=== PATIENT | female | born 1950 | race African-American/Black ===

== ENCOUNTER 2022-03-07 08:29 | Inpatient (IN) ==
[2022-03-07 09:26] LABS: Basophils # 0.1 10*3/uL (0.0-0.2); Basophils % 0.5 % (0.0-0.8); Eosinophils # 0.3 10*3/uL (0.0-0.87); Eosinophils % 3.2 % (0.00-10.9); Hemoglobin 13.4 GM/DL (12.0-16.0); Immature Granulocytes % 0.3 %; Immature Granulocytes Absolute 0.03 #; Lymphocytes # 1.2 10*3/uL (1.4-4.0); Lymphocytes % 11.9 % (21.3-54.2); Mean Corpuscular HGB Conc 31.9 GM/DL (32-36); Mean Corpuscular Volume 88.8 FL (87-102); Mean Platelet Volume 11.7 FL (9.6-12.0); Monocytes % 9.9 % (1.7-12.7); Neutrophils % 74.2 % (38.7-73.9); Platelet Count 254 T/CUMM (130-400); Red Blood Count 4.73 MC/CUMM (3.8-5.5); Red Cell Distribution Width 13.2 % (9.3-17.3); White Blood Count 9.9 T/CUMM (4-12)
[2022-03-07 09:36] LABS: Albumin 3.2 G/DL (3.4-5.0); Bilirubin,Total 0.6 MG/DL (0.20-1.00); Calcium 9.4 MG/DL (8.5-10.1); Potassium 4.3 MMOL/L (3.5-5.1); Total Protein 7.6 G/DL (6.4-8.2)
[2022-03-07] MEDS ORDERED: LEVOFLOXACIN INJ 750 MG in PREMIX 1 EACH IV STA (11:40)
[2022-03-07] MEDS ORDERED: ONDANSETRON 4 MG/2 ML VIAL IV PRN (11:41)
[2022-03-07] MEDS ORDERED: ACETAMINOPHEN 325 MG TABLET PO PRN (11:41)
[2022-03-07] MEDS ORDERED: methylPREDNISolone SOD SUC 125 MG/2 ML VIAL IV STA (11:41)
[2022-03-07] MEDS: SODIUM CHLORIDE 0.9% 1,000 ML IV SCH ×2 (12:01→22:00)
[2022-03-07] MEDS ORDERED: MORPHINE 2 MG/1 ML SYRINGE IV PRN (14:10)
[2022-03-07] MEDS ORDERED: KETOROLAC 15 MG/1 ML VIAL IV ONE (14:10)
[2022-03-07] MEDS: ALBUTEROL/IPRATROPIUM 3 ML NEB RESP TX SCH (19:10)
[2022-03-07] MEDS ORDERED: GLUCAGON 1 MG VIAL IM PRN (22:10)
[2022-03-07] MEDS ORDERED: BUTALBITAL ACETAMINOPHEN PO PRN (22:12)
[2022-03-07] MEDS ORDERED: [UNRECOGNIZED DRUG - OTHER] OPHTHALMIC (EYE) SCH (22:15)
[2022-03-07] MEDS ORDERED: DEXTROSE 10% 250 ML BAG IV PRN (22:15)
[2022-03-07] MEDS: DOCUSATE SODIUM 100 MG CAPSULE PO SCH (22:31)
[2022-03-08 05:13] LABS: Basophils % 0.1 % (0.0-0.8); Hematocrit 39.2 VOL% (35.7-47.0); Hemoglobin 12.5 GM/DL (12.0-16.0); Immature Granulocytes % 0.4 %; Immature Granulocytes Absolute 0.04 #; Lymphocytes # 0.4 10*3/uL (1.4-4.0); Mean Corpuscular HGB Conc 31.9 GM/DL (32-36); Mean Corpuscular Volume 89.1 FL (87-102); Mean Platelet Volume 12.1 FL (9.6-12.0); Monocytes # 0.5 10*3/uL (0.11-0.8); Monocytes % 4.7 % (1.7-12.7); Neutrophils % 90.8 % (38.7-73.9); Platelet Count 264 T/CUMM (130-400); Red Cell Distribution Width 12.9 % (9.3-17.3); White Blood Count 10.1 T/CUMM (4-12)
[2022-03-08 05:31] LABS: Alanine Aminotransferase 26 U/L (13-56); Albumin 2.8 G/DL (3.4-5.0); Alkaline Phosphatase 93 U/L (45-117); Aspartate Amino Transferase 14 U/L (0-37); Bilirubin,Total < 0.39 MG/DL (0.20-1.00); Blood Urea Nitrogen 24 MG/DL (7-18); Calcium 9.1 MG/DL (8.5-10.1); Carbon Dioxide 19 MMOL/L (21-32); Chloride 110 MMOL/L (98-107); Estimated Glom Filtration Rate 58 ML/MIN; Glucose 263 MG/DL (74-106); Osmolality,Calculated 289.5 MOS/KG (273-304); Sodium 139 MMOL/L (136-145); Total Protein 7.1 G/DL (6.4-8.2)
[2022-03-08 05:35] LABS: Band Neutrophils 1 % (0-10); Lymphocytes 2 % (20-55); Total Cells Counted 100
[2022-03-08 05:36] LABS: Microcytosis Slight; Polychromasia Slight
[2022-03-08 05:37] LABS: Platelet Estimate Normal
[2022-03-08] MEDS: SODIUM CHLORIDE 0.9% 1,000 ML IV SCH ×2 (06:00→17:37)
[2022-03-08] MEDS: ALBUTEROL/IPRATROPIUM 3 ML NEB RESP TX SCH ×4 (07:20→19:00)
[2022-03-08] MEDS ORDERED: LORATADINE 10 MG TABLET PO SCH (09:00)
[2022-03-08] MEDS ORDERED: METHOCARBAMOL 500 MG TABLET PO SCH (09:00)
[2022-03-08] MEDS ORDERED: OXYMETAZOLINE 0.05% NASAL SPRAY 15 ML BOTTLE BOTH NARES SCH (09:00)
[2022-03-08] MEDS ORDERED: DOXAZOSIN 1 MG TABLET PO SCH (09:00)
[2022-03-08] MEDS ORDERED: FEXOFENADINE 180 MG TABLET PO SCH (09:00)
[2022-03-08] MEDS: PANTOPRAZOLE 40 MG TABLET PO SCH (09:12)
[2022-03-08] MEDS: methylPREDNISolone SOD SUC 40 MG/1 ML VIAL IV SCH ×3 (09:12→23:40)
[2022-03-08] MEDS: GLIMEPIRIDE 4 MG TABLET PO SCH ×2 (09:13→17:28)
[2022-03-08] MEDS: MAGNESIUM OXIDE 400 MG TABLET PO SCH ×2 (09:14→20:10)
[2022-03-08] MEDS: cefTRIAXone 1,000 MG in SODIUM CHLORIDE 0.9% 100 ML IV SCH (09:18)
[2022-03-08] MEDS: DOCUSATE SODIUM 100 MG CAPSULE PO SCH ×2 (09:20→20:10)
[2022-03-08] MEDS: INSULIN REGULAR 100 UNIT/ML SUBCUT SCH ×4 (10:32→21:30)
[2022-03-08] MEDS: ASPIRIN EC 81 MG TABLET PO SCH (10:33)
[2022-03-08] MEDS: AZITHROMYCIN INJ 500 MG in SODIUM CHLORIDE 0.9% 250 ML IV SCH (10:56)
[2022-03-08] MEDS ORDERED: INSULIN GLARGINE 100 UNIT/ML SUBCUT SCH (16:56)
[2022-03-08] MEDS: DOXAZOSIN 1 MG TABLET PO SCH (17:28)
[2022-03-08] MEDS: FEXOFENADINE 180 MG TABLET PO SCH (20:10)
[2022-03-09] MEDS: ALBUTEROL/IPRATROPIUM 3 ML NEB RESP TX SCH ×3 (00:53→19:05)
[2022-03-09] MEDS: SODIUM CHLORIDE 0.9% 1,000 ML IV SCH ×3 (02:15→20:05)
[2022-03-09] MEDS ORDERED: GLUCAGON 1 MG VIAL IM PRN (07:02)
[2022-03-09] MEDS ORDERED: DEXTROSE 10% 25 GM/250 ML BAG IV PRN (07:02)
[2022-03-09 08:58] LABS: Calcium 8.9 MG/DL (8.5-10.1); Osmolality,Calculated 288.1 MOS/KG (273-304); Potassium 4.1 MMOL/L (3.5-5.1)
[2022-03-09] MEDS: PANTOPRAZOLE 40 MG TABLET PO SCH (09:40)
[2022-03-09] MEDS: GLIMEPIRIDE 4 MG TABLET PO SCH ×2 (09:40→16:35)
[2022-03-09] MEDS: ASPIRIN EC 81 MG TABLET PO SCH (09:40)
[2022-03-09] MEDS: INSULIN REGULAR 100 UNIT/ML SUBCUT SCH ×4 (09:40→20:05)
[2022-03-09] MEDS: MAGNESIUM OXIDE 400 MG TABLET PO SCH ×2 (09:41→20:05)
[2022-03-09] MEDS: DOCUSATE SODIUM 100 MG CAPSULE PO SCH ×2 (09:42→20:05)
[2022-03-09] MEDS: methylPREDNISolone SOD SUC 40 MG/1 ML VIAL IV SCH ×2 (09:44→15:23)
[2022-03-09] MEDS: cefTRIAXone 1,000 MG in SODIUM CHLORIDE 0.9% 100 ML IV SCH (09:54)
[2022-03-09] MEDS: INSULIN GLARGINE 100 UNIT/ML SUBCUT SCH (11:29)
[2022-03-09] MEDS: AZITHROMYCIN INJ 500 MG in SODIUM CHLORIDE 0.9% 250 ML IV SCH (11:29)
[2022-03-09] MEDS: DOXAZOSIN 1 MG TABLET PO SCH (16:35)
[2022-03-09] MEDS: FEXOFENADINE 180 MG TABLET PO SCH (20:05)
[2022-03-10] MEDS: methylPREDNISolone SOD SUC 40 MG/1 ML VIAL IV SCH ×4 (00:30→23:45)
[2022-03-10] MEDS: ALBUTEROL/IPRATROPIUM 3 ML NEB RESP TX SCH ×5 (00:44→19:08)
[2022-03-10] MEDS: SODIUM CHLORIDE 0.9% 1,000 ML IV SCH ×3 (03:55→23:45)
[2022-03-10 05:34] LABS: Calcium 8.6 MG/DL (8.5-10.1); Osmolality,Calculated 285.3 MOS/KG (273-304); Potassium 4.4 MMOL/L (3.5-5.1)
[2022-03-10] MEDS: GLIMEPIRIDE 4 MG TABLET PO SCH ×2 (08:45→17:37)
[2022-03-10] MEDS: PANTOPRAZOLE 40 MG TABLET PO SCH (08:46)
[2022-03-10] MEDS: MAGNESIUM OXIDE 400 MG TABLET PO SCH ×2 (08:46→20:15)
[2022-03-10] MEDS: DOCUSATE SODIUM 100 MG CAPSULE PO SCH ×2 (08:46→20:15)
[2022-03-10] MEDS: cefTRIAXone 1,000 MG in SODIUM CHLORIDE 0.9% 100 ML IV SCH (08:50)
[2022-03-10] MEDS: INSULIN REGULAR 100 UNIT/ML SUBCUT SCH ×4 (08:52→20:15)
[2022-03-10] MEDS: ASPIRIN EC 81 MG TABLET PO SCH (08:52)
[2022-03-10] MEDS: INSULIN GLARGINE 100 UNIT/ML SUBCUT SCH (08:53)
[2022-03-10] MEDS: AZITHROMYCIN INJ 500 MG in SODIUM CHLORIDE 0.9% 250 ML IV SCH (10:19)
[2022-03-10] MEDS: DOXAZOSIN 1 MG TABLET PO SCH (17:37)
[2022-03-10] MEDS: FEXOFENADINE 180 MG TABLET PO SCH (20:15)
[2022-03-11] MEDS: ALBUTEROL/IPRATROPIUM 3 ML NEB RESP TX SCH ×4 (00:44→19:15)
[2022-03-11 06:17] LABS: Basophils % 0.1 % (0.0-0.8); Hematocrit 38.5 VOL% (35.7-47.0); Hemoglobin 12.2 GM/DL (12.0-16.0); Immature Granulocytes Absolute 0.09 #; Lymphocytes # 1.1 10*3/uL (1.4-4.0); Lymphocytes % 11.7 % (21.3-54.2); Mean Corpuscular HGB Conc 31.7 GM/DL (32-36); Mean Corpuscular Volume 88.9 FL (87-102); Mean Platelet Volume 11.4 FL (9.6-12.0); Monocytes # 0.6 10*3/uL (0.11-0.8); Monocytes % 6.9 % (1.7-12.7); Neutrophils % 80.3 % (38.7-73.9); Platelet Count 322 T/CUMM (130-400); Red Blood Count 4.33 MC/CUMM (3.8-5.5); Red Cell Distribution Width 13.3 % (9.3-17.3)
[2022-03-11 06:37] LABS: Calcium 8.9 MG/DL (8.5-10.1); Osmolality,Calculated 285.1 MOS/KG (273-304); Potassium 4.3 MMOL/L (3.5-5.1)
[2022-03-11] MEDS ORDERED: MEPERIDINE 50 MG/1 ML VIAL IM ONE (07:30)
[2022-03-11] MEDS ORDERED: PROMETHAZINE 25 MG/1 ML VIAL IM ONE (07:30)
[2022-03-11] MEDS ORDERED: LIDOCAINE 2% 20 ML VIAL RESP TX ONE (08:00)
[2022-03-11] MEDS ORDERED: MIDAZOLAM 2 MG/2 ML VIAL IV ONE (08:00)
[2022-03-11] MEDS ORDERED: LIDOCAINE 2% VISCOUS 100 ML BOTTLE SWISH/SPIT ONE (08:00)
[2022-03-11] MEDS ORDERED: LIDOCAINE 1% 20 ML VIAL MISC INJ ONE (08:00)
[2022-03-11] MEDS: INSULIN REGULAR 100 UNIT/ML SUBCUT SCH ×4 (08:23→20:35)
[2022-03-11] MEDS: GLIMEPIRIDE 4 MG TABLET PO SCH ×2 (08:23→17:27)
[2022-03-11] MEDS: methylPREDNISolone SOD SUC 40 MG/1 ML VIAL IV SCH ×2 (09:13→16:03)
[2022-03-11] MEDS: INSULIN GLARGINE 100 UNIT/ML SUBCUT SCH (10:09)
[2022-03-11] MEDS: AZITHROMYCIN INJ 500 MG in SODIUM CHLORIDE 0.9% 250 ML IV SCH (10:18)
[2022-03-11] MEDS: cefTRIAXone 1,000 MG in SODIUM CHLORIDE 0.9% 100 ML IV SCH (11:25)
[2022-03-11] MEDS: DOCUSATE SODIUM 100 MG CAPSULE PO SCH ×2 (11:25→20:35)
[2022-03-11] MEDS: PANTOPRAZOLE 40 MG TABLET PO SCH (11:25)
[2022-03-11] MEDS: ASPIRIN EC 81 MG TABLET PO SCH (11:55)
[2022-03-11] MEDS: MAGNESIUM OXIDE 400 MG TABLET PO SCH ×2 (11:56→20:35)
[2022-03-11] MEDS: SODIUM CHLORIDE 0.9% 1,000 ML IV SCH ×2 (14:01→19:29)
[2022-03-11] MEDS: DOXAZOSIN 1 MG TABLET PO SCH (16:04)
[2022-03-11] MEDS: FEXOFENADINE 180 MG TABLET PO SCH (20:35)
[2022-03-12] MEDS: ALBUTEROL/IPRATROPIUM 3 ML NEB RESP TX SCH ×3 (00:15→13:25)
[2022-03-12] MEDS: methylPREDNISolone SOD SUC 40 MG/1 ML VIAL IV SCH ×2 (00:28→09:04)
[2022-03-12] MEDS: INSULIN REGULAR 100 UNIT/ML SUBCUT SCH ×3 (07:37→18:12)
[2022-03-12] MEDS ORDERED: GLIMEPIRIDE 4 MG TABLET PO SCH (08:00)
[2022-03-12] MEDS: cefTRIAXone 1,000 MG in SODIUM CHLORIDE 0.9% 100 ML IV SCH (09:02)
[2022-03-12] MEDS: DOCUSATE SODIUM 100 MG CAPSULE PO SCH (09:05)
[2022-03-12] MEDS: PANTOPRAZOLE 40 MG TABLET PO SCH (09:05)
[2022-03-12] MEDS: MAGNESIUM OXIDE 400 MG TABLET PO SCH (09:10)
[2022-03-12] MEDS: INSULIN GLARGINE 100 UNIT/ML SUBCUT SCH (10:02)
[2022-03-12] MEDS: AZITHROMYCIN INJ 500 MG in SODIUM CHLORIDE 0.9% 250 ML IV SCH (10:42)
[2022-03-12] MEDS: SODIUM CHLORIDE 0.9% 1,000 ML IV SCH (13:28)
[2022-03-12 16:10] VITALS: BP 137/60
[2022-03-12] MEDS: ASPIRIN EC 81 MG TABLET PO SCH (18:11)
[2022-03-12] MEDS: DOXAZOSIN 1 MG TABLET PO SCH (18:12)
[2022-03-14 12:22] LABS: M. Tuberculosis PCR Result Negative (Negative)
== END 2022-03-12 19:59 | disposition home or self-care (01) | DRG 167 ==
LOC: N.ED 08:29 → N.EDINP 11:41 → N.5E 16:34
PROVIDERS: ADMIT Internal Medicine; ATTEND Internal Medicine
PROC: BRONCHB (2022-03-11 08:20)

== ENCOUNTER 2022-04-08 06:57 | Inpatient (IN) ==
[2022-04-04 12:22] LABS: Basophils # 0.1 10*3/uL (0.0-0.2); Basophils % 1.2 % (0.0-0.8); Eosinophils # 0.8 10*3/uL (0.0-0.87); Eosinophils % 12.7 % (0.00-10.9); Hematocrit 43.1 VOL% (35.7-47.0); Hemoglobin 13.5 GM/DL (12.0-16.0); Immature Granulocytes % 0.3 %; Immature Granulocytes Absolute 0.02 #; Lymphocytes # 1.2 10*3/uL (1.4-4.0); Lymphocytes % 19.4 % (21.3-54.2); Mean Corpuscular HGB Conc 31.3 GM/DL (32-36); Mean Corpuscular Volume 89.4 FL (87-102); Mean Platelet Volume 12.2 FL (9.6-12.0); Monocytes # 0.7 10*3/uL (0.11-0.8); Monocytes % 10.7 % (1.7-12.7); Neutrophils % 55.7 % (38.7-73.9); Platelet Count 228 T/CUMM (130-400); Red Blood Count 4.82 MC/CUMM (3.8-5.5); Red Cell Distribution Width 14.1 % (9.3-17.3); White Blood Count 6.1 T/CUMM (4-12)
[2022-04-04 12:31] LABS: INR 0.9; PT Patient Result 10.3 SECS (10.5-12.0)
[2022-04-04 12:37] LABS: Alanine Aminotransferase 32 U/L (13-56); Albumin 3.4 G/DL (3.4-5.0); Alkaline Phosphatase 86 U/L (45-117); Aspartate Amino Transferase 23 U/L (0-37); Bilirubin,Total < 0.39 MG/DL (0.20-1.00); Blood Urea Nitrogen 16 MG/DL (7-18); Calcium 9.1 MG/DL (8.5-10.1); Carbon Dioxide 26 MMOL/L (21-32); Chloride 110 MMOL/L (98-107); Glucose 120 MG/DL (74-106); Osmolality,Calculated 282.3 MOS/KG (273-304); Potassium 4.1 MMOL/L (3.5-5.1); Sodium 141 MMOL/L (136-145); Total Protein 6.8 G/DL (6.4-8.2)
[2022-04-04 12:43] LABS: Eosinophils 14 % (0-10); Lymphocytes 23 % (20-55); Total Cells Counted 100
[2022-04-04 12:44] LABS: Platelet Estimate Adequate
[~2022-04-08 06:57] MED LIST: ceFAZolin 2,000 MG/50 ML DUPLEX IV ONE
[2022-04-08] MEDS ORDERED: DIAZEPAM 5 MG TABLET PO ONE (07:42)
[2022-04-08] MEDS ORDERED: FAMOTIDINE 20 MG TABLET PO ONE (07:42)
[2022-04-08] MEDS ORDERED: ALBUTEROL 0.63 MG/3 ML NEB RESP TX ONE (07:48)
[2022-04-08] MEDS ORDERED: LACTATED RINGERS 1,000 ML IV SCH (08:00)
[2022-04-08] MEDS ORDERED: HEPARIN/NACL 0.9% 2 UNITS/ML 1,000 UNIT/500 ML BAG IV ONE (08:24)
[2022-04-08] MEDS ORDERED: LIDOCAINE 1% 5 ML VIAL ONE (08:25)
[2022-04-08] MEDS ORDERED: SODIUM CHLORIDE 0.9% 1,000 ML IV ONE (08:25)
[2022-04-08] MEDS ORDERED: ROPIVACAINE 0.5% 30 ML VIAL ONE (08:25)
[2022-04-08] MEDS ORDERED: PHENYLEPHRINE DRIP 20 MG/250 ML PREMIX IV ONE (08:25)
[2022-04-08] MEDS ORDERED: LACTATED RINGERS 1,000 ML IV ONE (08:25)
[2022-04-08] MEDS ORDERED: DEXMEDETOMIDINE 200 MCG/2 ML VIAL ONE (08:40)
[2022-04-08] MEDS ORDERED: MIDAZOLAM 2 MG/2 ML VIAL ONE ×2 (08:40→09:24)
[2022-04-08] MEDS ORDERED: propofoL 200 MG/20 ML VIAL IV ONE (09:24)
[2022-04-08] MEDS ORDERED: SUCCINYLCHOLINE 200 MG/10 ML VIAL ONE (09:24)
[2022-04-08] MEDS ORDERED: ROCURONIUM 50 MG/5 ML VIAL IV ONE (09:24)
[2022-04-08] MEDS ORDERED: fentaNYL 100 MCG/2 ML VIAL ONE ×2 (09:24→10:29)
[2022-04-08] MEDS ORDERED: diphenhydrAMINE CAP 25 MG CAPSULE PO PRN (10:33)
[2022-04-08] MEDS ORDERED: diphenhydrAMINE 50 MG/1 ML VIAL IV PRN (10:33)
[2022-04-08 10:50] LABS: ABG Base Excess -1.6 MMOL/L (-2.5-2.5); ABG HCO3 23.1 MMOL/L (20-26); ABG Oxygen Saturation 99.7 % (95-100); ABG PCO2 39.1 MM HG (35-48); ABG PH 7.381 (7.35-7.45); ABG TCO2 20.4 MMOL/L (23-27); Glucose Heart Surgery 95 MG/DL (74-106); Hematocrit Heart Surgery 38.9 PERCENT (37-47); Hemoglobin Heart Surgery 12.6 G/DL (12.0-16.0); Ionized Calcium Arterial 1.22 MMOL/L (1.21-1.46); PCO2 Patient Temp Arterial 39.1 MMHG; PH Patient Temp Arterial 7.381; Patient Temperature 37 CELCIUS; Potassium Heart/CVR 3.7 MMOL/L (3.5-5.1); Sodium Heart/CVR 142 MMOL/L (135-145)
[2022-04-08] MEDS ORDERED: SEVOFLURANE 1 UNIT/15 MINUTE INH ONE (11:19)
[2022-04-08] MEDS ORDERED: ONDANSETRON 4 MG/2 ML VIAL ONE (11:19)
[2022-04-08] MEDS ORDERED: NEOSTIGMINE 10 MG/10 ML VIAL ONE (11:19)
[2022-04-08] MEDS ORDERED: DEXAMETHASONE 4 MG/1 ML VIAL ONE (11:19)
[2022-04-08] MEDS ORDERED: GLYCOPYRROLATE 0.4 MG/2 ML VIAL ONE ×2 (11:19)
[2022-04-08] MEDS ORDERED: SUGAMMADEX 200 MG/2 ML VIAL IV ONE (11:39)
[2022-04-08] MEDS ORDERED: GLUCAGON 1 MG VIAL IM PRN (11:44)
[2022-04-08] MEDS ORDERED: ACETAMINOPHEN 325 MG TABLET PO PRN (11:50)
[2022-04-08] MEDS ORDERED: DEXTROSE 10% 250 ML BAG IV PRN (11:53)
[2022-04-08] MEDS ORDERED: ALBUTEROL/IPRATROPIUM 3 ML NEB RESP TX ONE (11:59)
[2022-04-08] MEDS ORDERED: ALBUTEROL 2.5 MG/3 ML NEB RESP TX PRN (12:44)
[2022-04-08 12:57] LABS: Basophils # 0.1 10*3/uL (0.0-0.2); Basophils % 0.5 % (0.0-0.8); Eosinophils # 0.3 10*3/uL (0.0-0.87); Eosinophils % 2.9 % (0.00-10.9); Hematocrit 41.2 VOL% (35.7-47.0); Hemoglobin 12.8 GM/DL (12.0-16.0); Immature Granulocytes % 0.5 %; Immature Granulocytes Absolute 0.05 #; Lymphocytes # 0.8 10*3/uL (1.4-4.0); Lymphocytes % 8.6 % (21.3-54.2); Mean Corpuscular HGB Conc 31.1 GM/DL (32-36); Mean Corpuscular Volume 90.4 FL (87-102); Monocytes # 0.3 10*3/uL (0.11-0.8); Monocytes % 3.2 % (1.7-12.7); Neutrophils % 84.3 % (38.7-73.9); Platelet Count 268 T/CUMM (130-400); Red Blood Count 4.56 MC/CUMM (3.8-5.5); Red Cell Distribution Width 13.9 % (9.3-17.3); White Blood Count 9.6 T/CUMM (4-12)
[2022-04-08 13:15] LABS: Calcium 8.3 MG/DL (8.5-10.1); Potassium 3.7 MMOL/L (3.5-5.1)
[2022-04-08] MEDS: fentaNYL 2 MCG/ROPIV 0.2% EPID 100 ML EPIDURAL SCH (13:26)
[2022-04-08] MEDS: LACTATED RINGERS 1,000 ML IV SCH (14:01)
[2022-04-08] MEDS: POTASSIUM CHLORIDE INJ 10 MEQ in SODIUM CHLORIDE 0.45% 1,000 ML IV SCH ×2 (14:02→21:55)
[2022-04-08] MEDS: BENZONATATE 100 MG CAPSULE PO SCH ×2 (15:17→20:45)
[2022-04-08] MEDS: INSULIN REGULAR 100 UNIT/ML SUBCUT SCH ×2 (16:03→20:52)
[2022-04-08] MEDS: DOXAZOSIN 1 MG TABLET PO SCH ×2 (17:34→20:45)
[2022-04-08] MEDS: GLIMEPIRIDE 4 MG TABLET PO SCH (18:36)
[2022-04-08] MEDS: FEXOFENADINE 180 MG TABLET PO SCH (20:45)
[2022-04-08] MEDS: MAGNESIUM OXIDE 400 MG TABLET PO SCH (20:45)
[2022-04-08] MEDS ORDERED: ACETAMINOPHEN 500 MG TABLET PO SCH (21:30)
[2022-04-08] MEDS: GABAPENTIN 300 MG CAPSULE PO SCH (21:56)
[2022-04-08] MEDS: ACETAMINOPHEN 500 MG TABLET PO SCH (22:21)
[2022-04-09] MEDS: fentaNYL 2 MCG/ROPIV 0.2% EPID 100 ML EPIDURAL SCH ×5 (00:55→19:06)
[2022-04-09 04:10] LABS: Basophils % 0.3 % (0.0-0.8); Eosinophils % 0.2 % (0.00-10.9); Hematocrit 37.8 VOL% (35.7-47.0); Hemoglobin 11.8 GM/DL (12.0-16.0); Immature Granulocytes % 0.4 %; Immature Granulocytes Absolute 0.04 #; Lymphocytes % 9.6 % (21.3-54.2); Mean Corpuscular HGB Conc 31.2 GM/DL (32-36); Mean Platelet Volume 10.8 FL (9.6-12.0); Monocytes % 9.5 % (1.7-12.7); Platelet Count 279 T/CUMM (130-400); Red Cell Distribution Width 13.9 % (9.3-17.3); White Blood Count 10.8 T/CUMM (4-12)
[2022-04-09] MEDS ORDERED: LACTATED RINGERS 500 ML IV ONE (04:20)
[2022-04-09] MEDS ORDERED: ePHEDrine 50 MG/ML VIAL IV PRN (04:20)
[2022-04-09 04:29] LABS: Calcium 7.8 MG/DL (8.5-10.1); Osmolality,Calculated 276.7 MOS/KG (273-304); Potassium 4.3 MMOL/L (3.5-5.1)
[2022-04-09] MEDS: ACETAMINOPHEN 500 MG TABLET PO SCH ×3 (04:38→16:46)
[2022-04-09] MEDS: GABAPENTIN 300 MG CAPSULE PO SCH ×4 (04:38→20:47)
[2022-04-09] MEDS: POTASSIUM CHLORIDE INJ 10 MEQ in SODIUM CHLORIDE 0.45% 1,000 ML IV SCH (05:58)
[2022-04-09] MEDS: ENOXAPARIN 40 MG/0.4 ML SYRINGE SUBCUT SCH (06:50)
[2022-04-09] MEDS: INSULIN REGULAR 100 UNIT/ML SUBCUT SCH ×4 (08:24→20:39)
[2022-04-09] MEDS: GLIMEPIRIDE 4 MG TABLET PO SCH ×2 (08:32→16:45)
[2022-04-09] MEDS: ASPIRIN EC 81 MG TABLET PO SCH (08:32)
[2022-04-09] MEDS: ASCORBIC ACID 500 MG TABLET PO SCH (08:32)
[2022-04-09] MEDS: PANTOPRAZOLE 40 MG TABLET PO SCH (08:32)
[2022-04-09] MEDS: MAGNESIUM OXIDE 400 MG TABLET PO SCH ×2 (08:33→20:40)
[2022-04-09] MEDS: BENZONATATE 100 MG CAPSULE PO SCH ×3 (08:33→20:40)
[2022-04-09] MEDS: INSULIN GLARGINE 100 UNIT/ML SUBCUT SCH (08:34)
[2022-04-09] MEDS ORDERED: NOREPINEPHRINE 4 MG/4 ML VIAL IV ONE (09:30)
[2022-04-09] MEDS: LACTATED RINGERS 1,000 ML IV SCH (13:15)
[2022-04-09] MEDS: DOXAZOSIN 1 MG TABLET PO SCH (17:20)
[2022-04-09] MEDS: FEXOFENADINE 180 MG TABLET PO SCH (20:40)
[2022-04-09] MEDS ORDERED: GABAPENTIN 300 MG CAPSULE PO SCH (21:30)
[2022-04-10] MEDS: fentaNYL 2 MCG/ROPIV 0.2% EPID 100 ML EPIDURAL SCH ×2 (01:50→08:59)
[2022-04-10] MEDS: GABAPENTIN 300 MG CAPSULE PO SCH ×4 (02:10→21:36)
[2022-04-10 03:38] LABS: Basophils # 0.1 10*3/uL (0.0-0.2); Basophils % 0.5 % (0.0-0.8); Eosinophils # 0.2 10*3/uL (0.0-0.87); Eosinophils % 1.8 % (0.00-10.9); Hematocrit 40.5 VOL% (35.7-47.0); Hemoglobin 12.5 GM/DL (12.0-16.0); Immature Granulocytes % 0.5 %; Immature Granulocytes Absolute 0.05 #; Lymphocytes # 1.5 10*3/uL (1.4-4.0); Mean Corpuscular HGB Conc 30.9 GM/DL (32-36); Mean Corpuscular Volume 90.8 FL (87-102); Mean Platelet Volume 10.8 FL (9.6-12.0); Monocytes # 1.2 10*3/uL (0.11-0.8); Monocytes % 13.3 % (1.7-12.7); Neutrophils % 67.9 % (38.7-73.9); Platelet Count 242 T/CUMM (130-400); Red Blood Count 4.46 MC/CUMM (3.8-5.5); Red Cell Distribution Width 14.2 % (9.3-17.3); White Blood Count 9.3 T/CUMM (4-12)
[2022-04-10 03:56] LABS: Alanine Aminotransferase 17 U/L (13-56); Albumin 2.3 G/DL (3.4-5.0); Alkaline Phosphatase 60 U/L (45-117); Aspartate Amino Transferase 20 U/L (0-37); Bilirubin,Total < 0.39 MG/DL (0.20-1.00); Blood Urea Nitrogen 18 MG/DL (7-18); Calcium 8.1 MG/DL (8.5-10.1); Carbon Dioxide 26 MMOL/L (21-32); Chloride 113 MMOL/L (98-107); Glucose 93 MG/DL (74-106); Potassium 3.9 MMOL/L (3.5-5.1); Sodium 143 MMOL/L (136-145); Total Protein 5.9 G/DL (6.4-8.2)
[2022-04-10] MEDS: ENOXAPARIN 40 MG/0.4 ML SYRINGE SUBCUT SCH (05:29)
[2022-04-10] MEDS: INSULIN REGULAR 100 UNIT/ML SUBCUT SCH ×4 (08:00→21:37)
[2022-04-10] MEDS: PANTOPRAZOLE 40 MG TABLET PO SCH (08:22)
[2022-04-10] MEDS: ASPIRIN EC 81 MG TABLET PO SCH (08:22)
[2022-04-10] MEDS: ASCORBIC ACID 500 MG TABLET PO SCH (08:22)
[2022-04-10] MEDS: GLIMEPIRIDE 4 MG TABLET PO SCH ×3 (08:22→16:54)
[2022-04-10] MEDS: BENZONATATE 100 MG CAPSULE PO SCH ×3 (08:22→21:36)
[2022-04-10] MEDS: MAGNESIUM OXIDE 400 MG TABLET PO SCH ×2 (08:22→21:36)
[2022-04-10] MEDS: INSULIN GLARGINE 100 UNIT/ML SUBCUT SCH (09:35)
[2022-04-10] MEDS: LACTATED RINGERS 1,000 ML IV SCH (10:28)
[2022-04-10] MEDS ORDERED: cloNIDine 0.1 MG TABLET PO ONE (12:31)
[2022-04-10] MEDS: ONDANSETRON 4 MG/2 ML VIAL IV PRN ×2 (13:28→21:38)
[2022-04-10] MEDS: LIDOCAINE 5% PATCH TRANSDERM SCH (13:28)
[2022-04-10] MEDS ORDERED: BISMUTH SUBSALICYLATE 30 ML/524 MG 240 ML/BOTTLE PO PRN (15:24)
[2022-04-10] MEDS ORDERED: DOXAZOSIN 2 MG TABLET PO SCH (16:30)
[2022-04-10] MEDS: DOXAZOSIN 1 MG TABLET PO SCH (16:41)
[2022-04-10] MEDS: cloNIDine 0.1 MG TABLET PO SCH (21:36)
[2022-04-10] MEDS: FEXOFENADINE 180 MG TABLET PO SCH (21:36)
[2022-04-11] MEDS: fentaNYL 2 MCG/ROPIV 0.2% EPID 100 ML EPIDURAL SCH (02:10)
[2022-04-11] MEDS: GABAPENTIN 300 MG CAPSULE PO SCH ×4 (02:32→21:50)
[2022-04-11 06:36] LABS: Basophils % 0.5 % (0.0-0.8); Eosinophils # 0.3 10*3/uL (0.0-0.87); Eosinophils % 3.9 % (0.00-10.9); Immature Granulocytes % 0.4 %; Immature Granulocytes Absolute 0.03 #; Lymphocytes # 1.2 10*3/uL (1.4-4.0); Lymphocytes % 16.2 % (21.3-54.2); Mean Corpuscular HGB Conc 30.9 GM/DL (32-36); Mean Corpuscular Volume 91.2 FL (87-102); Mean Platelet Volume 11.9 FL (9.6-12.0); Monocytes # 0.8 10*3/uL (0.11-0.8); Monocytes % 10.6 % (1.7-12.7); Neutrophils % 68.4 % (38.7-73.9); Platelet Count 186 T/CUMM (130-400); Red Blood Count 6.03 MC/CUMM (3.8-5.5); Red Cell Distribution Width 13.8 % (9.3-17.3); White Blood Count 7.6 T/CUMM (4-12)
[2022-04-11 07:34] LABS: Alanine Aminotransferase 18 U/L (13-56); Albumin 2.3 G/DL (3.4-5.0); Alkaline Phosphatase 59 U/L (45-117); Aspartate Amino Transferase 15 U/L (0-37); Bilirubin,Total < 0.39 MG/DL (0.20-1.00); Blood Urea Nitrogen 10 MG/DL (7-18); Calcium 9.1 MG/DL (8.5-10.1); Carbon Dioxide 30 MMOL/L (21-32); Chloride 104 MMOL/L (98-107); Glucose 97 MG/DL (74-106); Osmolality,Calculated 271.8 MOS/KG (273-304); Potassium 3.7 MMOL/L (3.5-5.1); Sodium 137 MMOL/L (136-145); Total Protein 6.1 G/DL (6.4-8.2)
[2022-04-11] MEDS ORDERED: MAGNESIUM HYDROXIDE SUSP 30 ML UDCUP PO PRN (07:47)
[2022-04-11] MEDS: INSULIN REGULAR 100 UNIT/ML SUBCUT SCH ×4 (08:27→21:52)
[2022-04-11] MEDS: cloNIDine 0.1 MG TABLET PO SCH ×2 (08:39→21:50)
[2022-04-11] MEDS: PANTOPRAZOLE 40 MG TABLET PO SCH (08:40)
[2022-04-11] MEDS: ASPIRIN EC 81 MG TABLET PO SCH (08:40)
[2022-04-11] MEDS: MAGNESIUM OXIDE 400 MG TABLET PO SCH ×2 (08:40→21:50)
[2022-04-11] MEDS: ASCORBIC ACID 500 MG TABLET PO SCH (08:40)
[2022-04-11] MEDS: BENZONATATE 100 MG CAPSULE PO SCH ×3 (08:40→21:50)
[2022-04-11] MEDS: GLIMEPIRIDE 4 MG TABLET PO SCH ×2 (08:41→16:52)
[2022-04-11] MEDS: INSULIN GLARGINE 100 UNIT/ML SUBCUT SCH (08:42)
[2022-04-11] MEDS: LIDOCAINE 5% PATCH TRANSDERM SCH (09:44)
[2022-04-11] MEDS ORDERED: ENOXAPARIN 40 MG/0.4 ML SYRINGE SUBCUT ONE (14:43)
[2022-04-11] MEDS: DOXAZOSIN 1 MG TABLET PO SCH (16:44)
[2022-04-11] MEDS: FEXOFENADINE 180 MG TABLET PO SCH (21:50)
[2022-04-12] MEDS: GABAPENTIN 300 MG CAPSULE PO SCH ×4 (04:03→20:58)
[2022-04-12 04:50] LABS: Basophils # 0.1 10*3/uL (0.0-0.2); Eosinophils # 0.5 10*3/uL (0.0-0.87); Eosinophils % 7.5 % (0.00-10.9); Hematocrit 43.5 VOL% (35.7-47.0); Hemoglobin 13.5 GM/DL (12.0-16.0); Immature Granulocytes % 0.4 %; Immature Granulocytes Absolute 0.03 #; Lymphocytes # 1.7 10*3/uL (1.4-4.0); Lymphocytes % 24.2 % (21.3-54.2); Mean Corpuscular Volume 90.4 FL (87-102); Mean Platelet Volume 11.8 FL (9.6-12.0); Monocytes # 0.7 10*3/uL (0.11-0.8); Monocytes % 10.7 % (1.7-12.7); Neutrophils % 56.2 % (38.7-73.9); Platelet Count 296 T/CUMM (130-400); Red Blood Count 4.81 MC/CUMM (3.8-5.5); Red Cell Distribution Width 13.6 % (9.3-17.3); White Blood Count 6.9 T/CUMM (4-12)
[2022-04-12 05:14] LABS: Alanine Aminotransferase 21 U/L (13-56); Albumin 2.4 G/DL (3.4-5.0); Alkaline Phosphatase 62 U/L (45-117); Aspartate Amino Transferase 19 U/L (0-37); Bilirubin,Total < 0.39 MG/DL (0.20-1.00); Blood Urea Nitrogen 15 MG/DL (7-18); Calcium 9.3 MG/DL (8.5-10.1); Carbon Dioxide 29 MMOL/L (21-32); Chloride 105 MMOL/L (98-107); Glucose 91 MG/DL (74-106); Osmolality,Calculated 273.8 MOS/KG (273-304); Potassium 4.4 MMOL/L (3.5-5.1); Sodium 137 MMOL/L (136-145); Total Protein 6.7 G/DL (6.4-8.2)
[2022-04-12] MEDS: INSULIN GLARGINE 100 UNIT/ML SUBCUT SCH (09:17)
[2022-04-12] MEDS: INSULIN REGULAR 100 UNIT/ML SUBCUT SCH ×4 (09:17→21:33)
[2022-04-12] MEDS: cloNIDine 0.1 MG TABLET PO SCH ×2 (09:19→20:58)
[2022-04-12] MEDS: GLIMEPIRIDE 4 MG TABLET PO SCH ×2 (09:19→16:36)
[2022-04-12] MEDS: ASPIRIN EC 81 MG TABLET PO SCH (09:19)
[2022-04-12] MEDS: ASCORBIC ACID 500 MG TABLET PO SCH (09:20)
[2022-04-12] MEDS: MAGNESIUM OXIDE 400 MG TABLET PO SCH ×2 (09:21→20:59)
[2022-04-12] MEDS: PANTOPRAZOLE 40 MG TABLET PO SCH (09:21)
[2022-04-12] MEDS: BENZONATATE 100 MG CAPSULE PO SCH ×3 (09:21→20:59)
[2022-04-12] MEDS: ENOXAPARIN 40 MG/0.4 ML SYRINGE SUBCUT SCH (09:22)
[2022-04-12] MEDS: LIDOCAINE 5% PATCH TRANSDERM SCH (09:23)
[2022-04-12] MEDS ORDERED: BISACODYL 5 MG TABLET PO ONE (13:04)
[2022-04-12] MEDS: DOXAZOSIN 1 MG TABLET PO SCH (16:25)
[2022-04-12] MEDS: BISACODYL 5 MG TABLET PO SCH (20:58)
[2022-04-12] MEDS: FEXOFENADINE 180 MG TABLET PO SCH (20:58)
[2022-04-13] MEDS: GABAPENTIN 300 MG CAPSULE PO SCH ×2 (04:22→09:30)
[2022-04-13] MEDS ORDERED: BISACODYL 10 MG SUPP RECTAL ONE (07:41)
[2022-04-13] MEDS ORDERED: LACTULOSE 20 GM/30 ML UDCUP PO ONE (07:42)
[2022-04-13] MEDS: INSULIN REGULAR 100 UNIT/ML SUBCUT SCH ×2 (08:20→12:06)
[2022-04-13] MEDS: cloNIDine 0.1 MG TABLET PO SCH (09:29)
[2022-04-13] MEDS: BISACODYL 5 MG TABLET PO SCH (09:29)
[2022-04-13] MEDS: BENZONATATE 100 MG CAPSULE PO SCH (09:29)
[2022-04-13] MEDS: GLIMEPIRIDE 4 MG TABLET PO SCH (09:30)
[2022-04-13] MEDS: ASCORBIC ACID 500 MG TABLET PO SCH (09:30)
[2022-04-13] MEDS: ASPIRIN EC 81 MG TABLET PO SCH (09:30)
[2022-04-13] MEDS: MAGNESIUM OXIDE 400 MG TABLET PO SCH (09:30)
[2022-04-13] MEDS: ENOXAPARIN 40 MG/0.4 ML SYRINGE SUBCUT SCH (09:31)
[2022-04-13] MEDS: INSULIN GLARGINE 100 UNIT/ML SUBCUT SCH (09:31)
[2022-04-13] MEDS: LIDOCAINE 5% PATCH TRANSDERM SCH (09:32)
[2022-04-13] MEDS: PANTOPRAZOLE 40 MG TABLET PO SCH (09:33)
[2022-04-13 14:23] VITALS: BP 111/74
== END 2022-04-13 14:43 | disposition home or self-care (01) | DRG 163 ==
LOC: N.SDSINP 06:57 → N.ICU 12:32 → N.TELES 04-12 17:49
PROVIDERS: ADMIT Surgery; ATTEND Surgery